=== PATIENT | male | born 1965 | race Caucasian/White ===

== ENCOUNTER 2018-05-17 10:17 | Inpatient (IN) | payer OTHER ==
[2018-05-15 08:22] VITALS: BP 108/69
[2018-05-15 08:49] LABS: BASOPHILS # (AUTO) 0.14 x10^3/uL (0-0.1); BASOPHILS % (AUTO) 1 % (0-1); EOSINOPHILS # (AUTO) 0.15 x10^3/uL (0-0.4); EOSINOPHILS % (AUTO) 1 % (1-7); LYMPHOCYTES # (AUTO) 2.12 x10^3/uL (1-3.4); LYMPHOCYTES % (AUTO) 19 % (22-44); MD NO; MEAN CORPUSCULAR HEMOGLOBIN 32.1 pg (27.5-34.5); MEAN CORPUSCULAR HGB CONC 33.5 g/dL (33.2-36.2); MEAN CORPUSCULAR VOLUME 95.8 fL (81-97); MEAN PLATELET VOLUME 8.4 fL (7.4-10.4); MONOCYTES # (AUTO) 1.05 x10^3/uL (0.2-0.8); MONOCYTES % (AUTO) 9 % (2-9); NEUTROPHILS # (AUTO) 7.79 x10^3/uL (1.8-6.8); NEUTROPHILS % (AUTO) 69 % (42-75); PLATELET COUNT 273 x10^3/uL (130-400); RED BLOOD COUNT 5.54 x10^6/uL (4.38-5.82); RED CELL DISTRIBUTION WIDTH 13.8 % (9.4-14.8)
[2018-05-15 08:57] LABS: CHLORIDE 110 mmol/L (98-107); CREATININE 1.07 mg/dL (0.7-1.3)
[2018-05-15 08:58] LABS: ANION GAP 6 mmol/L (5-15); CALCIUM 8.5 mg/dL (8.5-10.1); INTERNATIONAL NORMALIZED RATIO 1.09 (0.93-1.1); PROTHROMBIN TIME 11.4 Seconds (9.6-11.5)
[~2018-05-17] VITALS: Ht 177.8 cm; Wt 89.0 kg
[~2018-05-17 10:17] MED LIST: AMIO200T42 PO; AMOX1TAB64 PO; APIX5TAB PO; CARV-39 PO; CARV3.1212 PO; DIGO250T PO; FURO-93 PO; LEVO175T5 PO; LEVO200T5 PO; METO50TA4 PO; SACU1TAB PO; [UNRECOGNIZED DRUG - CODE] IM
[2018-05-17] MEDS ORDERED: SODIUM CHLORIDE 0.9% 1,000 ML IV SCH (10:31)
[2018-05-17] MEDS ORDERED: CEFAZOLIN PMX 1GM/50ML 50 ML IVPB ONE (11:00)
[2018-05-17] MEDS ORDERED: MIDAZOLAM 1 MG/ML, 5ML ONE (11:44)
[2018-05-17] MEDS ORDERED: CEFAZOLIN 1,000 MG ONE (11:44)
[2018-05-17] MEDS ORDERED: LIDOCAINE 1%, 20ML ONE (11:44)
[2018-05-17] MEDS ORDERED: CEFAZOLIN PMX 1GM/50ML 50 ML ONE (11:44)
[2018-05-17] MEDS ORDERED: FENTANYL PF 100 MCG/2ML ONE (11:44)
[2018-05-17] MEDS ORDERED: LIDOCAINE 2%, 20ML ONE ×2 (12:18→12:22)
[2018-05-17] MEDS ORDERED: HYDROcodone/APAP 5/325 TABLET PO PRN (13:00)
[2018-05-17] MEDS ORDERED: ONDANSETRON 2MG/ML, 2ML IV PRN (13:00)
[2018-05-17] MEDS ORDERED: ZOLPIDEM 5MG TABLET PO PRN (13:00)
[2018-05-17] MEDS ORDERED: HOLD MEDICATION MC PRN (13:00)
[2018-05-17 16:25] VITALS: BP 105/71
[2018-05-17 19:47] VITALS: BP 116/75
[2018-05-17] MEDS: CEFAZOLIN PMX 1GM/50ML 50 ML IVPB SCH (20:09)
[2018-05-17] MEDS: SODIUM CHLORIDE FLUSH 10ML SYR IVF SCH (20:10)
[2018-05-17] MEDS: SACUBITRIL/VALSARTAN 24MG-26MG TAB PO SCH (20:10)
[2018-05-17] MEDS: CARVEDILOL 25 MG TABLET PO SCH (20:10)
[2018-05-18 01:12] VITALS: BP 90/83
[2018-05-18] MEDS: CEFAZOLIN PMX 1GM/50ML 50 ML IVPB SCH ×2 (04:08→12:20)
[2018-05-18 07:00] VITALS: BP 110/80
[2018-05-18] MEDS ORDERED: LEVOTHYROXINE 75 MCG TABLET ONE (08:32)
[2018-05-18] MEDS ORDERED: LEVOTHYROXINE 100 MCG TABLET ONE (08:32)
[2018-05-18] MEDS: SACUBITRIL/VALSARTAN 24MG-26MG TAB PO SCH (08:35)
[2018-05-18] MEDS: CARVEDILOL 25 MG TABLET PO SCH (08:36)
[2018-05-18] MEDS: SODIUM CHLORIDE FLUSH 10ML SYR IVF SCH (08:36)
[2018-05-18] MEDS ORDERED: LEVOTHYROXINE 175 MCG TABLET PO SCH (09:00)
== END 2018-05-18 12:49 | disposition home or self-care (01) | DRG 226 ==
LOC: CACL 10:17 → 5SO 12:42 → CACL 13:30 → DCLOUNGE 05-18 12:40
PROVIDERS: ADMIT Internal Medicine Cardiovascular Disease; ATTEND Internal Medicine Cardiovascular Disease
PROC: 0JH608Z Insertion of Defibrillator Generator into Chest Subcutaneous Tissue and Fascia, Open Approach (ICD-10-PCS; principal; 2018-05-17)
PROC: 02HK3KZ Insertion of Defibrillator Lead into Right Ventricle, Percutaneous Approach (ICD-10-PCS; 2018-05-17)
DX: I42.8 Other cardiomyopathies (principal); I50.23 Acute on chronic systolic (congestive) heart failure; D68.69 Other thrombophilia; E03.9 Hypothyroidism, unspecified; I48.91 Unspecified atrial fibrillation; Z79.01 Long term (current) use of anticoagulants; Z87.891 Personal history of nicotine dependence
CPT/HCPCS: 33249; 36415; 71045; 71046; 80048; 85025; 85610; 93005; 99156; 99157; C1892; C1895; G0378; J0690; J2250; J3010; J3490; C1722